=== PATIENT | female | born 1995 | race Hispanic/Latino ===

== ENCOUNTER 2020-02-22 21:39 | Emergency (ER) | payer MEDICAID ==
[2020-02-22 23:01] LABS: BASOPHILS % (AUTO) 0.4 % (0.0-5.0); EOSINOPHILS % (AUTO) 2.4 % (0.0-8.0); HEMATOCRIT 35.6 % (36-48); LYMPHOCYTES % (AUTO) 24.3 % (21.0-51.0); MEAN CORPUSCULAR HEMOGLOBIN 28.1 pg (27.0-33.0); MEAN CORPUSCULAR HGB CONC 34.8 g/dL (32.0-36.0); MEAN CORPUSCULAR VOLUME 80.7 fL (79-99); MONOCYTES % (AUTO) 6.5 % (3.0-13.0); NEUTROPHILS % (AUTO) 65.9 % (40.0-77.0); PLATELET COUNT (AUTO) 222 K/uL (130-400); RED BLOOD CELL COUNT(AUTO) 4.41 MIL/uL (4.00-5.50); RED CELL DISTRIBUTION WIDTH 12.6 % (11.0-15.5); WHITE BLOOD COUNT (AUTO) 8.4 K/uL (4.8-10.8)
[2020-02-22 23:12] LABS: CREATININE 0.7 mg/dL (0.5-1.5); POTASSIUM 3.4 mmol/L (3.5-5.1)
[2020-02-22 23:39] LABS: ALBUMIN 3.4 g/dL (3.5-5.0)
[2020-02-22 23:49] LABS: BILIRUBIN,URINE Negative (NEGATIVE); COLOR,URINE Yellow (YELLOW); GLUCOSE, URINE (UA) Negative (NEGATIVE); KETONES,URINE Negative (NEGATIVE); LEUKOCYTE ESTERASE ,URINE Small (NEGATIVE); NITRATE,URINE Positive (NEGATIVE); OCCULT BLOOD,URINE Negative (NEGATIVE); PH,URINE 7.5 (5.0-8.0); PROTEIN,URINE Negative (NEGATIVE)
[2020-02-22 23:55] LABS: APPEARANCE,URINE HAZY (CLEAR)
[2020-02-23 00:05] LABS: BILIRUBIN,TOTAL 0.1 mg/dL (0.2-1.0)
[2020-02-23 00:08] LABS: BACTERIA,URINE Many /HPF (None Seen); RBC,URINE None Seen /HPF (0-1)
[2020-02-23 00:09] LABS: SQUAMOUS EPITHELIAL CELL,UR 0-2 /HPF (0-2)
[2020-02-23] MEDS ORDERED: CEPHALEXIN 500 MG CAPSULE ONE (01:10)
== END 2020-02-23 01:21 | disposition home or self-care (01) ==
LOC: EDH 21:39
DX: O26.891 Other specified pregnancy related conditions, first trimester (principal); R10.9 Unspecified abdominal pain; Z3A.11 11 weeks gestation of pregnancy
CPT/HCPCS: 36415; 76801; 80053; 81001; 84702; 85025; 86850; 86900; 86901

== ENCOUNTER 2020-09-12 14:44 | Observation (INO) | payer MEDICAID ==
[~2020-09-12] VITALS: Ht 165.1 cm; Wt 82.1 kg
[~2020-09-12 14:44] MED LIST: FERR-82 PO; PREN-202 PO
[2020-09-12] MEDS ORDERED: ONDANSETRON HCL 4 MG/2 ML VIAL ONE (15:13)
[2020-09-12] MEDS ORDERED: FENTANYL CITRATE PF 50 MCG/1 ML 2ML VIAL ONE (15:14)
[2020-09-12] MEDS ORDERED: MAGNESIUM 2GM PREMIX 50ML 50 ML IV ONE (16:31)
[2020-09-12 16:58] LABS: BASOPHILS % (AUTO) 0.2 % (0.0-5.0); EOSINOPHILS % (AUTO) 1.9 % (0.0-8.0); HEMATOCRIT 31.2 % (36-48); LYMPHOCYTES % (AUTO) 12.4 % (21.0-51.0); MEAN CORPUSCULAR HEMOGLOBIN 28.1 pg (27.0-33.0); MEAN CORPUSCULAR HGB CONC 33.7 g/dL (32.0-36.0); MEAN CORPUSCULAR VOLUME 83.4 fL (79-99); MONOCYTES % (AUTO) 4.4 % (3.0-13.0); NEUTROPHILS % (AUTO) 79.9 % (40.0-77.0); PLATELET COUNT (AUTO) 231 K/uL (130-400); RED BLOOD CELL COUNT(AUTO) 3.74 MIL/uL (4.00-5.50); RED CELL DISTRIBUTION WIDTH 16.8 % (11.0-15.5); WHITE BLOOD COUNT (AUTO) 8.4 K/uL (4.8-10.8)
[2020-09-12 17:14] LABS: CREATININE 0.5 mg/dL (0.5-1.5); POTASSIUM 3.6 mmol/L (3.5-5.1)
[2020-09-12 17:19] LABS: ALBUMIN 2.7 g/dL (3.5-5.0); BILIRUBIN,DIRECT 0.1 mg/dL (0.0-0.3); BILIRUBIN,TOTAL 0.2 mg/dL (0.2-1.0); TOTAL PROTEIN, SERUM 6.2 g/dL (6.0-8.3)
[2020-09-12 17:44] LABS: APPEARANCE,URINE SL CLOUDY (CLEAR); BILIRUBIN,URINE NEGATIVE (NEGATIVE); COLOR,URINE YELLOW (YELLOW); GLUCOSE, URINE (UA) NEGATIVE (NEGATIVE); KETONES,URINE 15 mg/dL (NEGATIVE); LEUKOCYTE ESTERASE ,URINE MODERATE (NEGATIVE); NITRATE,URINE NEGATIVE (NEGATIVE); OCCULT BLOOD,URINE LARGE (NEGATIVE); PROTEIN,URINE TRACE mg/dL (NEGATIVE); UROBILINOGEN,URINE 0.2 mg/dL (0.2-1.0)
[2020-09-12 18:00] LABS: BACTERIA,URINE Few /HPF (None Seen); SQUAMOUS EPITHELIAL CELL,UR Few /HPF (0-2)
[2020-09-12 18:02] LABS: PARTIAL THROMBOPLASTIN TIME 24.4 SEC (26.3-35.5)
[2020-09-12 18:16] LABS: INR 0.85 (0.85-1.15); PROTHROMBIN TIME 9.2 SEC (9.6-11.6)
[2020-09-12] MEDS ORDERED: MAGNESIUM 4GM PREMIX 100ML 100 ML IV PRN (20:45)
[2020-09-12] MEDS ORDERED: CALCIUM GLUCONATE 1 GM/10 ML VIAL IV PRN (20:45)
[2020-09-12] MEDS ORDERED: MAGNESIUM SULFATE 1,000 ML IV ONE (20:54)
[2020-09-12] MEDS ORDERED: MAGNESIUM 4GM PREMIX 100ML 100 ML IV ONE (20:54)
[2020-09-12] MEDS: LACTATED RINGERS 1000ML 1,000 ML IV SCH (20:59)
[2020-09-12] MEDS: BUTALB/ACETAMINOPHEN/CAFFEINE 1 EACH TABLET PO PRN (21:10)
[2020-09-13] MEDS: BUTALB/ACETAMINOPHEN/CAFFEINE 1 EACH TABLET PO PRN ×3 (01:01→09:06)
[2020-09-13] MEDS: LACTATED RINGERS 1000ML 1,000 ML IV SCH ×2 (05:08→09:08)
[2020-09-13] MEDS ORDERED: MEPERIDINE-PF 50 MG/ML SYG IVP PRN (10:15)
[2020-09-13] MEDS ORDERED: PROMETHAZINE HCL 25 MG/ML 1ML AMPULE IM PRN (10:15)
[2020-09-13 14:24] VITALS: BP 150/94
[2020-09-13 16:00] VITALS: BP 150/97
--- NOTE | 2020-09-13 16:00 | NUR ---
F/C DISCONTINUED AT THIS TIME. TIP INTACT AND PT TOLERATED WELL. INSTRUCTED TO CALL FOR ASSISTANCE WHEN READY TO GO TO BATHROOM. VERBALIZED UNDERSTANDING.
--- NOTE | 2020-09-13 16:55 | NUR ---
PT CONTINUES WITH ELEVATED B/P AND STATES HAS NO PAIN OR HEADACHES AND IS COMFORTABLE SINCE BLOOD PATCH DONE. DR. COLLADO INFORMED OF B/P'S AND NEW ORDERS RECEIVED.
[2020-09-13] MEDS: LABETALOL HCL 100 MG TABLET PO SCH (17:31)
[2020-09-13 19:40] VITALS: BP 153/99
[2020-09-13 23:45] VITALS: BP 148/92
[2020-09-14] MEDS: LABETALOL HCL 100 MG TABLET PO SCH ×2 (01:03→08:56)
[2020-09-14] MEDS: BUTALB/ACETAMINOPHEN/CAFFEINE 1 EACH TABLET PO PRN (02:29)
[2020-09-14 03:55] VITALS: BP 136/79
[2020-09-14 07:39] VITALS: BP 149/80
[2020-09-14 11:21] VITALS: BP 145/92
--- NOTE | 2020-09-14 13:10 | NUR ---
pt is discharged in stable condition, verbal and written discharge instructions given, pls refer to [facility]. informed of the follow up appointment, prescription given. informed to monitor blood pressure and notify the doctor for high BP reading and for headache. informed to call the doctor for further concerns. pt voiced understanding to all things discussed. Addendum: 09/14/20 at 1354 by AILYN HAN RN Amended: Links added.
--- NOTE | 2020-09-14 14:10 | NUR ---
pt is dismissed, brought to private car via wheelchair Addendum: 09/14/20 at 1415 by AILYN HAN RN Amended: Links added.
== END 2020-09-14 14:10 | disposition home or self-care (01) ==
LOC: EDH 14:44 → LDH 14:45 → WSH 09-13 13:45
PROVIDERS: ADMIT Specialist; ATTEND Specialist
DX: R51.9 Headache, unspecified (principal); R11.2 Nausea with vomiting, unspecified; R50.9 Fever, unspecified
CPT/HCPCS: 36415 ×2; 70450; 80048; 80076; 81001; 82550; 83735; 84484; 85025; 85610; 85730; 87088; 93005; 96361; 96365; 96366 ×2; 99285; A4314; A4510; A4600; G0378 ×11; J2405; J3010; J3475 ×3